=== PATIENT | male | born 1980 | race Caucasian/White ===

== ENCOUNTER 2019-05-04 09:46 | Day surgery (SDC) | payer BC ==
[~2019-05-04] VITALS: Ht 182.9 cm; Wt 81.7 kg
[~2019-05-04 09:46] MED LIST: ALEVE220 M1 PO; HYDROCODON-ACE1 EAC7 PO; PROTONIX 20 MG20 MG PO; SUDAFED 12 HOU120 MG PO; ZANTAC 150MG T150 M1 PO; ZYRTEC10 M5 PO
[2019-05-04 11:09] VITALS: BP 140/98
--- NOTE | 2019-05-04 18:32 | O ---
[address] [address] OPERATIVE REPORT Name: CARLEY RABAGO Room #: 150-6 [facility]..#: [id number] Admission: 05/04/19 Attend Phys: Saman Mercer MD Discharge: Date of : 84 Report #: [id number] THIS REPORT FOR: //name// CC: FAM unknown FAMILY KENRICKA Saman Mercer DATE OF SERVICE: 05/04/2019 SERVICE: Orthopedics. FACILITY: [place]. SURGEON: Saman Mercer MD MILLING MACHINE SET UP OPERATOR: Kia Foster NP. INDICATION FOR MILLING MACHINE SET UP OPERATOR: Extremity positioning, retraction, assistance with the complex reconstruction. PREOPERATIVE DIAGNOSES: 1. Left knee pain. 2. Left knee patellar chondromalacia, severe. 3. Left knee patellar maltracking. POSTOPERATIVE DIAGNOSES: 1. Left knee pain. 2. Left knee patellar chondromalacia, severe. 3. Left knee patellar maltracking. PROCEDURE: 1. Left knee matrix based autologous chondrocyte implantation. 2. Left knee open tibial tubercle anterior and medializing osteotomy. 3. Left knee open lateral release. COMPLICATIONS: None. DRAINS: None. SPECIMENS: None. ANESTHESIA: General with regional. FINDINGS: 1. A 28 mm diameter lesion grafted within the central patella. 2. 54 and 42 mm Synthes 4.5 mm lag screws for osteotomy fixation. [address] [address] OPERATIVE REPORT Name: CARLEY RABAGO Room #: 150-6 [facility]#: [id number] Admission: 05/04/19 Attend Phys: Saman Mercer MD Discharge: Date of : 84 Report #: [id number] 3. Intact articular cartilage and menisci otherwise. HISTORY: The patient is a 38-year-old gentleman with history of advanced left knee pain with significant articular cartilage disease who had failed extensive conservative measures including rest, activity modifications, physical therapy, injections, oral medicines and was having significant impact on his activities of daily living. We made plans for his 2-stage approach and took a biopsy previously. He was ready to move forward with surgery with plans for STERLING with TTO. Risks, benefits, alternatives, and indication of surgery discussed with him in detail. Risks include but not limited to pain, bleeding, infection, injury to nerves or blood vessels, persistent pain despite surgical intervention, failure of any repairs, reconstruction, progression of preexisting chondral injury, stiffness, need for further surgery as well as complications related to anesthesia such as stroke, heart attack, pulmonary complications, thromboembolic disease and . Despite these risks, he wished to proceed. PROCEDURE IN DETAIL: After left lower extremity was correctly identified in preoperative holding as operative extremity, the patient underwent placement of single shot regional nerve block. He was then taken to the operating room where general anesthesia was induced without complication. He was padded appropriately. Prophylactic antibiotics were administered at appropriate time. Left leg had a tourniquet applied to it and then was prepped and draped in standard sterile fashion. Time-out procedure was performed. Standard anterior approach was made with medial parapatellar arthrotomy. Dissection was taken down to the joint with care taken to protect the articular cartilage and the menisci. The retropatellar tendon fat pad was removed and then osteotome was used to perform an oblique osteotomy with a slight anterior to posterior pitch as the osteotomy would be mobilized medially. It was left with a hinge distally. The patella was then everted. The knee was flexed and we sized the central patellar defect, which was rather severe to the 28 mm round template and then proceeded to remove the chondromalacia down to the bony level including the calcified layer. At this point, after complete resection of the pathologic cartilage was completed, the tourniquet was let down. Hemostasis was achieved with thrombin-soaked Gelfoam and then I laid a thin layer of fibrin glue down within the recipient bed and then took the STERLING membrane impregnated with autologous chondrocyte and placed into the recipient bed with still side down and then placed a thin rim of fibrin glue around the perimeter. Excess glue was then removed to prevent any tethering. This was allowed to cure. It was carefully evaluated to ensure that excellent placement of the graft had been successfully achieved. After this was completed, the knee was taken into extension and the patella was then gently reduced with care taken to avoid excessive trauma and pressure to the grafted location. The osteotomy was moved medially and then provisionally fixed in place and then a crosstable lateral x-ray was used to watch placement of the interfragmentary compression screws. I used two 4.5 mm fully threaded cortical screws, placed in lag technique with the [address] [address] OPERATIVE REPORT Name: CARLEY RABAGO Room #: 150-6 [facility]#: [id number] Admission: 05/04/19 Attend Phys: Saman Mercer MD Discharge: Date of : 84 Report #: [id number] head countersunk. Good compression was obtained. The excess bone was placed at the osteotomy site as a bone graft. The wound was copiously irrigated and then the arthrotomy was closed with 0 Vicryl suture in [id number] fashion. First, however, I did use a pair of scissors to complete a lateral release distally to ensure that more appropriate tracking was achieved when the osteotomy was fixed and in the new position the patella was anatomically seated and aligned well and tracked within the 30 degrees of accepted flexion in this early phase. After the arthrotomy was closed, the skin layer was closed with 2-0 Vicryl followed by running subcuticular 3-0 Monocryl and Dermabond. Sterile dressing was applied followed by compression stocking. A PolarCare device and a hinged knee brace set from 0-30 degrees. <ELECTRONICALLY SIGNED> By: Saman Mercer MD 05/04/19 1832 [id number] Saman Mercer MD /nt
== END 2019-05-04 17:41 | disposition home or self-care (01) ==
LOC: OR 09:46 → TBA 09:48 → OR 10:38
DX: M25.562 Pain in left knee (principal); M22.42 Chondromalacia patellae, left knee; M22.2X2 Patellofemoral disorders, left knee; I10 Essential (primary) hypertension; G43.909 Migraine, unspecified, not intractable, without status migrainosus; J45.909 Unspecified asthma, uncomplicated; G47.30 Sleep apnea, unspecified; F17.210 Nicotine dependence, cigarettes, uncomplicated; K21.9 Gastro-esophageal reflux disease without esophagitis; Z98.890 Other specified postprocedural states; Z79.899 Other long term (current) drug therapy
CPT/HCPCS: 50010; 50101; 50415; 50954; 51038; 51436; 53000; 53337; 54118; 54170; 56527; 56528; 56667; 57103; 57180; 62110; 62900; 64042; 70005

== ENCOUNTER 2019-05-08 21:32 | Inpatient (IN) | payer BC ==
[~2019-05-08] VITALS: Ht 182.9 cm; Wt 86.2 kg
[2019-05-08 21:36] VITALS: BP 129/81
[2019-05-08 22:53] LABS: ABSOLUTE NEUTROPHILS 15.5 thou/uL (1.4-8.2); BASOPHILS 0.7 % (0.0-2.0); EOSINOPHILS 0.7 % (0.0-3.0); HEMATOCRIT 42.7 % (42.0-52.0); HEMOGLOBIN 14.5 gm/dL (14.0-18.0); MCH 31.4 pg (26.0-34.0); MCV 92.3 fL (80.0-100.0); MONOCYTES 9.3 % (1.0-8.0); PLATELET COUNT 384 thou/uL (150-400); POLYS 79.3 % (36.0-66.0); RBC 4.63 mil/uL (4.50-6.00); RDW 12.8 % (10.5-14.5); WBC 19.6 thou/uL (4.0-11.0)
[2019-05-08 22:56] LABS: ANION GAP 8 mmol/L (7-16); BUN 12 mg/dL (7-18); CALCIUM 9.1 mg/dL (8.5-10.1); CHLORIDE 97 mmol/L (98-107); CO2 28 mmol/L (21-32); GLUCOSE 135 mg/dL (74-106); POTASSIUM 3.7 mmol/L (3.5-5.1); SODIUM 133 mmol/L (136-145)
[2019-05-08 22:58] LABS: URINE BILIRUBIN 1+ (Negative); URINE BLOOD NEGATIVE (Negative); URINE CLARITY SL CLOUDY; URINE COLOR YELLOW; URINE GLUCOSE-RANDOM* TRACE (Negative); URINE KETONES TRACE (Negative); URINE LEUKOCYTES-REFLEX NEGATIVE (Negative); URINE NITRITE-REFLEX NEGATIVE (Negative); URINE PROTEIN (DIPSTICK) 2+ (Negative); URINE SPECIFIC GRAVITY >= 1.030 (1.005-1.035)
[2019-05-08 22:59] LABS: ICTOTEST (BILI CONFIRMATORY) Positive (Negative)
[2019-05-08 23:03] LABS: ALBUMIN 2.9 g/dL (3.4-5.0); DIRECT BILIRUBIN < 0.1 mg/dL (<0.1-0.3); SGOT 14 U/L (15-37); SGPT 24 U/L (30-65); TOTAL BILIRUBIN 0.3 mg/dL (<0.1-1.0); TOTAL PROTEIN 7.3 g/dL (6.4-8.2)
[2019-05-08] MEDS ORDERED: MORPHINE SULFAT15 MG PO (23:03)
[2019-05-08] MEDS ORDERED: BUPROPION HCL150 MG PO (23:04)
[2019-05-08] MEDS ORDERED: HYDROCODON-ACE1 EAC8 PO (23:04)
[2019-05-08 23:12] LABS: BACTERIA-REFLEX None Seen /HPF (None Seen); HYALINE CASTS 0-3 Few /LPF (None Seen); MUCUS 4-6 Moderate strn/LPF (None Seen); SQUAMOUS 0-3 Few /LPF (0-3); URINE RBC 0-2 Rare /HPF (0-2); URINE WBC-REFLEX None Seen /HPF (0-5)
[2019-05-08 23:13] LABS: CRYSTALS None Seen /LPF (None Seen)
[2019-05-09 00:39] VITALS: BP 126/94
[2019-05-09 00:52] VITALS: BP 135/86
[2019-05-09 01:37] VITALS: BP 130/80
--- NOTE | 2019-05-09 04:10 | NUR ---
PT WAS ADMITTED TO THE UNIT AT APPROX 0125 FROM THE ER IN THE COMPANY OF HIS .PT ALERT AND COOPERATIVE.PT HAD A TEMP OF 99.6 ON ADMIT.MEDS RECOINCILED IN ER.L KNEE WITH MCKAY HOSE AND DRY DRESSING.IMMOBILIZER IN PLACE ON THAT KNEE.PT C/O PAIN ON HIS KNEE,MANAGED WITH MEDICATION.PT'S BROUGHT POLAR PACK FROM HOME,ICE ON PT'S KNEE.PT CONT ON IV ABX ORDERED.PT RESTING ON HIS BED AT THIS TIME.CALL LIGHT WITHIN REACH.
[2019-05-09 06:20] LABS: HEMATOCRIT 41.5 % (42.0-52.0); MCH 31.1 pg (26.0-34.0); MCHC 33.8 g/dL (28.0-37.0); PLATELET COUNT 376 thou/uL (150-400); RBC 4.51 mil/uL (4.50-6.00); WBC 14.3 thou/uL (4.0-11.0)
[2019-05-09 07:09] LABS: ABSOLUTE NEUTROPHILS 10.6 thou/uL (1.4-8.2)
[2019-05-09 09:16] VITALS: BP 151/101
[2019-05-09 19:00] VITALS: BP 131/82
[2019-05-09 20:10] VITALS: BP 142/91
[2019-05-10 05:39] VITALS: BP 114/72
[2019-05-10 06:40] LABS: HEMATOCRIT 39.2 % (42.0-52.0); HEMOGLOBIN 13.5 gm/dL (14.0-18.0); MCH 31.7 pg (26.0-34.0); MCHC 34.4 g/dL (28.0-37.0); MCV 92.2 fL (80.0-100.0); PLATELET COUNT 385 thou/uL (150-400); RBC 4.25 mil/uL (4.50-6.00); RDW 12.7 % (10.5-14.5); WBC 11.5 thou/uL (4.0-11.0)
[2019-05-10 06:48] LABS: CALCIUM 8.8 mg/dL (8.5-10.1); CREATININE 0.8 mg/dL (0.7-1.3); MAGNESIUM 1.8 mg/dL (1.8-2.4); POTASSIUM 3.4 mmol/L (3.5-5.1)
--- NOTE | 2019-05-10 07:53 | NUR ---
PT C/O PAIN ON HIS L KNEE,MANAGED WITH MEDICATION.POLAR PACK ON L KNEE.DRY DRSG AND MCKAY HOSE ON.PT DENIED N/V.VSS.PT WAITING TO BE DC'D LATER IN THE DAY.REPORT TO AM NURSE.
[2019-05-10 10:30] LABS: ABSOLUTE NEUTROPHILS 7.1 thou/uL (1.4-8.2); PLATELET ESTIMATE NORMAL
--- NOTE | 2019-05-10 14:31 | NUR ---
ASSESSMENT-PT LIVES AT HOME WITH HIS . PT HAS HIS HOME CPM MACHINE IN THE ROOM. PT HAS A ROLLER WALKER AT HOME ALREADY. PT SAYS HE WILL CALL HIS OUTPT THERAPY PLACE WHICH IS LOCaTED CLOSE TO [facility] TO SCHEDULE HIS OUTPT VISITS ONCE HE GETS HOME AND IS SETTLED. PT'S WILL COME GET HIS CPM WHEN HE IS DISCHARGED BUT HE WILL NEED TO GET A RIDE HOME FROM A [facility]RIED BECAUSE THEY HAVE A HUGE VAN AND HE CANNOT GET UP IN IT. PT SAYS MENTIONED THAT HE MIGHT NEED IV ABX AT HOME. FOLLOWING TO ASSIST WITH DC PLANNING. PT HAS NOT HAD ANY HH SERVICES IN THE PAST.
--- NOTE | 2019-05-10 15:36 | HC ---
[facility] [place] [address] [place] [address] CONSULTATION Name: CARLEY RABAGO Room #: 444-P ADM IN M.R.#: [id number] Admission: 05/08/19 Attend Phys: Saman Mercer MD Discharge: Date of : 84 Report #: [id number] THIS REPORT FOR: //name// CC: FAM unknown Saman Mercer DATE OF SERVICE: 05/09/2019 REASON FOR CONSULTATION: Evaluation concerning surgical site infection, left knee. HISTORY OF PRESENT ILLNESS: A 38-year-old status post left knee open autologous patellar articular cartilage transplantation with tibial tubercle osteotomy. Procedure on 05/04/2019, Dr. Saman Mercer. No intraoperative complications. Did well early postop. On 05/07/2019, developed low-grade fever, increased pain, swelling in the knee. This is associated with chills. He presented on 05/08/2019 for further evaluation. Evident that there was increased swelling, tenderness and erythema along the incision line and anterior knee, placed on vancomycin. Over the next 12 hours, he has noticed improvement. Temperature has decreased and no further chills. He has had less pain today. He has had multiple surgeries involving both shoulders and both knees. No previous surgical site infections. No skin disorder. Nondiabetic. Smokes cigarettes. ALLERGIES: None known. MEDICATIONS: As noted on his MAR, now on vancomycin. Previously was on morphine, hydrocodone, bupropion, Zyrtec, Sudafed, ranitidine, pantoprazole. PAST MEDICAL HISTORY: Obstructive sleep apnea, asthma, migraine headaches, gastroesophageal reflux, gastric ulcer, hypertension, multiple joint surgeries as noted above. FAMILY HISTORY: Noncontributory. 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 Occasional alcohol use. REVIEW OF SYSTEMS: Ten-point review was negative other than what has been described above. PHYSICAL EXAMINATION: VITAL SIGNS: Afebrile and hemodynamically stable. GENERAL: Alert and cooperative and pleasant, in no acute distress. Maximum temperature was 99.6. SKIN: Without rash or decubitus other than what will be described in his extremity examination. No palpable adenopathy. [facility] [address] [place] [address] CONSULTATION Name: CARLEY RABAGO Ibis Room #: 444-P [facility] IN M.R.#: [id number] Admission: 05/08/19 Attend Phys: Saman Mercer MD Discharge: Date of : 84 Report #: [id number] HEENT: Eyes, without scleral icterus. Mouth without mucositis. NECK: Supple. LUNGS: Clear. HEART: Regular, without murmur, gallop or rub. ABDOMEN: Soft, nontender, no hepatosplenomegaly or mass. GENITORECTAL: Not performed. EXTREMITIES: With left knee incision well approximated. There was no drainage. There was associated erythema along the incision line and extending laterally. No drainage from his incision. Has limited range of motion due to his knee in a brace to control his range of motion. Pulses were normal in the foot. Sensation in the foot was normal. Normal capillary refill. Mood normal. LABORATORY STUDIES: Sedimentation rate 80. CRP is 230. Blood cultures are negative today. Hemoglobin is 14, WBC 14, platelet count 376,000. Differential 74% neutrophils, 17% lymphs. Creatinine 1. Liver function test is normal. RADIOLOGICAL STUDIES: Chest x-ray, clear. X-ray of the knee showed some air and fluid anteriorly in the soft tissues. The two screws in the tibia seen in alignment. IMPRESSION: 1. Left knee surgical site infection. Unclear if this tracks to the joint and hardware. He is tolerating medications well and seems to be responding to therapy. 2. Underlying patellar chondromalacia and maltracking left patella. 3. Tobacco use. 4. Obstructive sleep apnea. RECOMMENDATIONS: We will continue IV antibiotic therapy. We will discuss further with Orthopedic Surgery the duration of the fixation necessary for his repair. If no improvement on this current regimen, we will then consider surgical incision and debridement. Anticipate arranging outpatient IV antibiotic therapy. We will reassess his progress in the morning and determine outpatient therapy program. <ELECTRONICALLY SIGNED> By: Randy Reyez MD 05/10/19 1536 1536 19 Randy Reyez MD /nt
--- NOTE | 2019-05-10 16:33 | NUR ---
iv abx orders sent to [facility] to check benefits. WAITING ON PICC LINE TO BE PLACED.
--- NOTE | 2019-05-10 17:26 | NUR ---
RECEIVED WORD BACK FROM [facility] THAT PT HAS 100% COVERAGE FOR IV ABX, MILES FROM IV THERAPY HERE TO ATTEMPT PICC LINE INSERTION. PT WANTS TO GO HOME TODAY IF POSSIBLE.
[2019-05-10 17:28] VITALS: BP 114/72
[2019-05-10 17:40] VITALS: BP 114/72
[2019-05-10 19:28] VITALS: BP 114/72
[2019-05-10] MEDS ORDERED: VANCOMYCIN1.5 GM/253 IV (19:35)
--- NOTE | 2019-05-10 19:57 | NUR ---
Assumed pt care at 7am.Pt in bed alert and oriented x4.Assessment completed. vss.Polar pack to left knee as ordered.Medicated pt with pain med as needed with relief.Dr Bowie and Alisha here dc order noted.Pt vanco trough at [address] bowie notified,order noted.Later this afternoon,picc line placed by iv team prior to pt dc home with home health with iv antibiotic.Dc summary compiled and reviewed with pt.deputy county attorney came and instruct pt on iv therapy. At 1940,pt dc home with family in accompanied by planning manager.
--- NOTE | 2019-05-11 15:32 | NUR ---
FAXED DC ORDERS, DC SUMMARY AND H&P TO [facility]. THEY WILL CALL PT TO SCHEDULE LABS AND PICC LINE DRSG CHANGE IN THEIR [facility]ION AREA.
== END 2019-05-10 19:40 | disposition home health service (06) | DRG 863 ==
LOC: ER 21:32 → 4S 23:34 → EROBS 23:34 → 4S 05-09 01:14
PROVIDERS: Emergency Medicine; Internal Medicine; ADMIT Orthopaedic Surgery Sports Medicine
DX: T81.41XA Infection following a procedure, superficial incisional surgical site, initial encounter (principal); L03.116 Cellulitis of left lower limb; G43.909 Migraine, unspecified, not intractable, without status migrainosus; K21.9 Gastro-esophageal reflux disease without esophagitis; I10 Essential (primary) hypertension; J45.909 Unspecified asthma, uncomplicated; G47.33 Obstructive sleep apnea (adult) (pediatric); M22.42 Chondromalacia patellae, left knee; Y83.8 Other surgical procedures as the cause of abnormal reaction of the patient, or of later complication, without mention of misadventure at the time of the procedure; Y92.89 Other specified places as the place of occurrence of the external cause
CPT/HCPCS: 10100; 10195; 27000